=== PATIENT | male | born 1975 | race Two or more races ===

== ENCOUNTER 2018-03-10 00:42 | Emergency (ER) | payer SELFPAY ==
[~2018-03-10] VITALS: Ht 167.6 cm; Wt 65.8 kg
[~2018-03-10 00:42] MED LIST: ABILIFY; SERT20CO7
[2018-03-10 01:08] VITALS: BP 147/97
== END 2018-03-10 02:30 | disposition left against medical advice (07) ==
LOC: ER 00:42
DX: R05 Cough (principal); Z53.21 Procedure and treatment not carried out due to patient leaving prior to being seen by health care provider

== ENCOUNTER 2019-06-01 20:51 | Emergency (ER) | payer SELFPAY ==
[~2019-06-01] VITALS: Ht 167.6 cm; Wt 65.8 kg
[2019-06-01 22:15] VITALS: BP 144/96
[2019-06-01] MEDS ORDERED: Acetam/CODEINE 120mg/12mg per 5mL UD PO ONE (23:00)
== END 2019-06-01 23:56 | disposition home or self-care (01) ==
LOC: ER 20:52
DX: S02.641A Fracture of ramus of right mandible, initial encounter for closed fracture (principal); S02.611A Fracture of condylar process of right mandible, initial encounter for closed fracture; F12.10 Cannabis abuse, uncomplicated; Y08.89XA Assault by other specified means, initial encounter; Y93.89 Activity, other specified; Y92.89 Other specified places as the place of occurrence of the external cause; Y99.8 Other external cause status
CPT/HCPCS: 70450; 70486; 72125

== ENCOUNTER 2020-10-14 16:28 | Emergency (ER) | payer MEDICAID ==
[~2020-10-14] VITALS: Ht 167.6 cm; Wt 65.8 kg
[2020-10-14 18:58] VITALS: BP 133/89
== END 2020-10-14 19:08 | disposition home or self-care (01) ==
LOC: ER 16:28
DX: S83.92XA Sprain of unspecified site of left knee, initial encounter (principal); F12.10 Cannabis abuse, uncomplicated; Z79.899 Other long term (current) drug therapy; Y04.2XXA Assault by strike against or bumped into by another person, initial encounter; Y93.89 Activity, other specified; Y92.89 Other specified places as the place of occurrence of the external cause; Y99.8 Other external cause status
CPT/HCPCS: 29505; 73562